=== PATIENT | female | born 1955 | race African-American/Black ===

== ENCOUNTER 2016-11-04 10:33 | Emergency (ER) | payer OTHER, MEDICAID ==
[~2016-11-04] VITALS: Ht 162.6 cm; Wt 75.0 kg
[2016-11-04] MEDS ORDERED: DICYCLOMINE HCL 10MG CAPSULE PO ONE (12:30)
[2016-11-04] MEDS ORDERED: ACETAMINOPHEN 325MG TABLET PO ONE (12:30)
[2016-11-04 12:44] LABS: BASOPHILS % 0.8 % (0.0-2.0); EOSINOPHILS % 1.2 % (0.0-5.0); HEMATOCRIT. 41.9 % (36.0-48.0); HEMOGLOBIN. 14.2 g/dL (12.0-16.0); LYMPHOCYTES % 17.6 % (20.0-50.0); MEAN CORPUSCULAR HEMOGLOBIN 28.6 pg (28.0-32.0); MEAN CORPUSCULAR VOLUME 84.2 fL (81.0-99.0); MEAN PLATELET VOLUME 10.1 fl (7.4-10.4); MONOCYTES % 4.6 % (2.0-8.0); NEUTROPHILS % 75.8 % (40.0-76.0); PLATELET 209 x1000/uL (130-400); RED BLOOD CELL COUNT 4.98 mill/uL (4.2-5.4); RED CELL DISTRIBUTION WIDTH 13.4 % (11.6-14.6)
[2016-11-04 12:51] LABS: CHLORIDE 106 mEq/L (98-107)
[2016-11-04 12:52] LABS: INR 1.1; PROTHROMBIN TIME 11.4 sec (9.4-11.6)
[2016-11-04 12:57] LABS: CARBON DIOXIDE 29 mEq/L (21-32)
[2016-11-04 13:03] LABS: CLARITY URINE CLEAR (CLEAR); COLOR URINE YELLOW (YELLOW); GLUCOSE URINE NEGATIVE (NEGATIVE); KETONES URINE TRACE (NEGATIVE); LEUKOCYTE ESTERASE URINE NEGATIVE (NEGATIVE); NITRITE URINE NEGATIVE (NEGATIVE); OCCULT BLOOD URINE TRACE (NEGATIVE); PH URINE 7.5 (4.5-8.0); PROTEIN URINE NEGATIVE (NEGATIVE); UROBILINOGEN URINE 0.2 E.U./dL (0.2-1.0)
[2016-11-04 15:48] VITALS: BP 109/61
== END 2016-11-04 15:52 | disposition home or self-care (01) ==
LOC: ER 10:33
DX: R10.9 Unspecified abdominal pain (principal); R19.7 Diarrhea, unspecified; M54.30 Sciatica, unspecified side; F41.9 Anxiety disorder, unspecified; E11.9 Type 2 diabetes mellitus without complications; Z90.710 Acquired absence of both cervix and uterus
CPT/HCPCS: 36415; 74000; 80053; 81001; 81025; 83690; 85025; 85610; 99285